=== PATIENT | female | born 1990 | race Caucasian/White ===

== ENCOUNTER 2023-04-12 06:13 | Inpatient (IN) | payer BC ==
[2023-04-12] MEDS ORDERED: METHYLERGONOVINE 0.2 MG/ML 1 ML AMP IM PRN (06:27)
[2023-04-12] MEDS ORDERED: OXYTOCIN 10 UNIT/ML 1 ML VIAL IM PRN (06:27)
[2023-04-12] MEDS ORDERED: miSOPROStoL 200 MCG TAB PO PRN (06:27)
[2023-04-12] MEDS ORDERED: TRANEXAMIC 1,000 MG/100ML-NACL 1,000 MG in EMPTY BAG 1 BAG IV PRN (06:27)
[2023-04-12] MEDS ORDERED: CARBOPROST TROMETHAMINE 250 MCG/ML 1 ML AMP IM PRN (06:27)
[2023-04-12] MEDS ORDERED: TERBUTALINE 1 MG/ML VIAL SQ PRN (06:27)
[2023-04-12] MEDS: OXYTOCIN 30 UNITS/500 ML NS 30 UNIT in SALINE 1 500ML.BAG IV SCH (06:54)
[2023-04-12] MEDS: LACTATED RINGERS 1,000 ML IV SCH (06:54)
[2023-04-12 06:55] LABS: Basophils % (A) 0 %; Eosinophils # (A) 0.1 k/uL (0-0.7); Eosinophils % (A) 2 %; HCT 42.1 % (34.0-46.0); HGB 15.1 gm/dL (11.4-16.0); Lymphocytes % (A) 22 %; MCH 33.3 pg (25.0-35.0); MCHC 35.8 g/dL (31.0-37.0); MCV 93.1 fL (80.0-100.0); Mean Platelet Volume 7.4; Monocytes # (A) 0.4 k/uL (0-1.0); Monocytes % (A) 4 %; Neutrophils # (A) 6.4 k/uL (1.3-7.7); Neutrophils % (A) 70 %; Platelet Count 222 k/uL (150-450); RBC 4.52 m/uL (3.80-5.40); RDW 12.5 % (11.5-15.5); WBC 9.1 k/uL (3.8-10.6)
[2023-04-12 07:23] LABS: Glucose,Whole Blood 79 mg/dL (70-110)
[2023-04-12] MEDS ORDERED: fentaNYL (PF) 50 MCG/ML 5 ML AMP ONE (09:18)
[2023-04-12] MEDS ORDERED: ROPIVACAINE 5 MG/ML 30 ML VIAL ONE (09:18)
[2023-04-12] MEDS ORDERED: SODIUM CHLORIDE 0.9% 250 ML BAG ONE (09:18)
[2023-04-12] MEDS ORDERED: ZOLPIDEM 5 MG TAB PO PRN (12:30)
[2023-04-12] MEDS ORDERED: BENZOCAINE/MENTHOL SPRAY 1 GM/SPRAY AEROSOL TOPICAL PRN (12:30)
[2023-04-12] MEDS ORDERED: diphenhydrAMINE 50 MG CAP PO PRN (12:30)
[2023-04-12] MEDS ORDERED: LANOLIN CREAM 5 GM TUBE TOPICAL PRN (12:30)
[2023-04-12] MEDS ORDERED: SIMETHICONE 80 MG CHEWABLE PO PRN (12:30)
[2023-04-12] MEDS ORDERED: diphenhydrAMINE 50 MG/ML 1 ML VIAL IVP PRN ×2 (12:30)
[2023-04-12] MEDS ORDERED: HYDROCORTISONE 2.5% RECTAL CREAM 30 GM TUBE RECTAL PRN (12:30)
[2023-04-12] MEDS ORDERED: diphenhydrAMINE 25 MG CAP PO PRN (12:30)
[2023-04-12] MEDS ORDERED: OXYTOCIN 30 UNITS/500 ML NS 30 UNIT in SALINE 1 500ML.BAG IV SCH (12:30)
--- NOTE | 2023-04-12 13:22 | P.PROBDLV ---
Vaginal Delivery Note - . Vaginal Delivery Note: This is a 32-year-old 1 para 0 at 39-1/7 weeks that presented to labor and delivery for induction of labor secondary to gestational diabetes, diet controlled. Patient was admitted and Pitocin induction of labor was begun. Patient underwent amniotomy and clear fluid was obtained. Patient quickly became uncomfortable and did request epidural placement. Epidural was placed without difficulty by the anesthesia department. Patient made good progress toward complete and began pushing. With excellent maternal effort patient had a normal spontaneous vaginal delivery of a viable female , loose nuchal cord delivered through compound right hand. After 2-minute delay the umbilical cord was doubly clamped and cut. Spontaneous cry was noted at . The send was delivered spontaneously intact with a three-vessel cord being noted. On inspection the patient's vaginal vault a second-degree midline laceration was appreciated this was instilled with lidocaine and repaired with 3-0 Rapide in the usual fashion. A small periurethral laceration was noted to be bleeding therefore 4-0 chromic in a [id number] suture was used to obtain hemostasis. Uterus was noted to be firm and below the umbilicus. The bladder was drained for approximately 200 cc of clear yellow urine after delivery of the placenta. All counts were noted be correct x 2. And and tolerated delivery well and resting comfortably.
[2023-04-12] MEDS: LIDOCAINE 0.5% (PF) 5 MG/ML (50 ML SDV) SQ PRN (13:28)
[2023-04-12] MEDS: IBUPROFEN 600 MG TAB PO SCH (17:22)
[2023-04-12] MEDS: SENNOSIDES-DOCUSATE SODIUM 1 EACH TAB PO SCH (20:18)
[2023-04-13] MEDS: ACETAMINOPHEN TAB 325 MG TAB PO PRN (05:24)
[2023-04-13] MEDS: LEVOTHYROXINE 125 MCG TAB PO SCH (05:24)
[2023-04-13 06:29] LABS: Basophils % (A) 0 %; Eosinophils # (A) 0.1 k/uL (0-0.7); Eosinophils % (A) 1 %; HGB 12.4 gm/dL (11.4-16.0); Lymphocytes # (A) 2.3 k/uL (1.0-4.8); Lymphocytes % (A) 20 %; MCH 33.2 pg (25.0-35.0); MCHC 35.4 g/dL (31.0-37.0); MCV 93.6 fL (80.0-100.0); Mean Platelet Volume 8.6; Monocytes # (A) 0.5 k/uL (0-1.0); Monocytes % (A) 4 %; Neutrophils # (A) 8.3 k/uL (1.3-7.7); Neutrophils % (A) 74 %; Platelet Count 190 k/uL (150-450); RBC 3.74 m/uL (3.80-5.40); RDW 12.6 % (11.5-15.5); WBC 11.3 k/uL (3.8-10.6)
--- NOTE | 2023-04-13 09:04 | P.DS ---
Providers Date of admission: 04/12/23 06:13 Expected date of discharge: 04/13/23 Attending physician: Mariposa Joshi Primary care physician: Mike Boykin - Discharge Diagnosis(es) (1) Term Current Visit: Yes Status: Acute (2) GDM, class A1 Current Visit: Yes Status: Acute (3) Status post vaginal delivery Current Visit: Yes Status: Acute (4) Obstetrical laceration, second degree Current Visit: Yes Status: Acute Hospital Course: 32-year-old G1 now P1 that presented to labor and delivery at 39-1/7 weeks for induction of labor secondary to gestational diabetes, diet-controlled. Patient had been receiving routine care which was essentially uncomplicated despite the diagnosis of gestational diabetes. Blood sugars been well-con trolled throughout the . Patient was admitted and Pitocin duction of labor was begun. Patient underwent amniotomy clear fluid was obtained. Patient quickly became uncomfortable and did request epidural placement. Patient progressed to complete began pushing had a normal spontaneous vaginal delivery of a viable female infant with a loose nuchal cord and compound right hand. Patient did sustain a second-degree vaginal laceration which was repaired in the usual fashion with 3-0 Rapide. Patient's course has been uneventful. This day #1 she is ambulating and voiding without difficulty. She is tolerating a regular diet without nausea or vomiting. States her pain is well-controlled. She is breast-feeding with some difficulty and will see prior to discharge. Viable female infant delivered at 1205, weight of 6 pounds 6 ounces, Apgars of 9 and 10 at 1 and 5 minutes respectively. Patient Condition at Discharge: Good Plan - Discharge Summary New Discharge Prescriptions: No Action Aspirin 81 mg PO DAILY Vit No.179/Iron/Folic [ Tablet] 1 tab PO DAILY metFORMIN HCL [Glucophage] 500 mg PO BID Levothyroxine Sodium [Synthroid] 125 mcg PO DAILY Discharge Medication List Aspirin 81 mg PO DAILY 04/12/23 [History] Levothyroxine Sodium [Synthroid] 125 mcg PO DAILY 04/12/23 [History] Vit No.179/Iron/Folic [ Tablet] 1 tab PO DAILY 04/12/23 [History] metFORMIN HCL [Glucophage] 500 mg PO BID 04/12/23 [History] Follow up Appointment(s)/Referral(s): Mariposa Joshi DO [Doctor of Osteopathic Medicine] - 6 Weeks Patient Instructions/Handouts: Vaginal Delivery (GEN), Vaginal Delivery (DC) Discharge Disposition: HOME SELF-CARE
[2023-04-13] MEDS: PRENATAL VIT-IRON-FOLIC ACID 1 EACH TABLET PO SCH (10:09)
[2023-04-14 02:11] VITALS: RESP 16
[2023-04-14 07:34] VITALS: BP 130/91; PULSE 81; TEMP 97.6
--- NOTE | 2023-04-14 11:48 | P.HPOB ---
History of Present Illness H&P Date: 04/12/23 Chief Complaint: IUP @ 39 1/7 weeks, GDM A1 32 yo at 39 1/7 weeks that presents to the hospital for induction of labor secondary to gestational diabetes diet-controlled. Patient's blood sugars have been well-controlled throughout the . Patient notes good movement and occasional contraction but denies vaginal bleeding or loss of fluid. On blood work this patient is a blood type of O+. Past Medical History Past Medical History: Asthma Additional Past Medical History / Comment(s): PCOS History of Any Multi-Drug Resistant Organisms: None Reported Past Surgical History: No Surgical Hx Reported Past Anesthesia/Blood Transfusion Reactions: No Reported Reaction Past Psychological History: No Psychological Hx Reported Smoking Status: Never smoker Past Drug Use History: None Reported Medications and Allergies Home Medications Medication Instructions Recorded Confirmed Type Aspirin 81 mg PO DAILY 04/12/23 04/12/23 History Levothyroxine Sodium [Synthroid] 125 mcg PO DAILY 04/12/23 04/12/23 History Vit No.179/Iron/Folic 1 tab PO DAILY 04/12/23 04/12/23 History [ Tablet] metFORMIN HCL [Glucophage] 500 mg PO BID 04/12/23 04/12/23 History Allergies Allergy/AdvReac Type Severity Reaction Status Date / Time Penicillins Allergy Rash/Hives Verified 03/31/23 12:37 acetaminophen [From [facility]] AdvReac Nausea Verified 04/12/23 06:27 hydrocodone [From [facility]] AdvReac Nausea Verified 04/12/23 06:27 oxycodone AdvReac Nausea Verified 04/12/23 06:27 Exam Osteopathic Statement: *. No significant issues noted on an osteopathic structural exam other than those noted in the History and Physical/Consult. Vital Signs Temp Pulse Resp BP 04/12/23 06:25 97.5 F L 90 16 134/88 Intake and Output 04/11/23 04/12/23 04/12/23 22:59 06:59 14:59 Other: Weight 81.647 kg Results Result Diagrams: 04/12/23 06:41
--- NOTE | 2023-04-14 11:48 | P.PNOBGVD ---
Subjective - Subjective Principal diagnosis: day #2, normal spontaneous vaginal delivery Interval history: Patient is doing well . She is ambulating and voiding without difficulty. She is tolerating a regular diet without nausea or vomiting. States her pain is well-controlled. She denies concerns. She is working on breast-feeding with some difficulty and using nipple shield. Patient reports: Reports appetite normal, Reports voiding normally, Reports pain well controlled, Reports ambulating normally : doing well Objective - Latest Vital Signs Latest vital signs: Vital Signs Temp Pulse Resp BP Pulse Ox 04/14/23 07:27 97.6 F 81 16 130/91 96 04/14/23 00:15 98.0 F 89 16 111/79 95 04/13/23 15:10 97.9 F 97 18 123/85 95 - Exam Extremities: Present: normal, edema Abdomen: Present: normal appearance Uterus: Present: normal, firm Assessment and Plan (1) Term Current Visit: Yes Status: Acute Code(s): Z34.90 - ENCNTR FOR SUPRVSN OF NORMAL , UNSP, UNSP TRIMESTER SNOMED Code(s): 97068558 (2) GDM, class A1 Current Visit: Yes Status: Acute Code(s): O24.410 - GESTATIONAL DIABETES MELLITUS IN , DIET CONTROLLED SNOMED Code(s): 66999108 (3) Status post vaginal delivery Current Visit: Yes Status: Acute Code(s): XJL9368 - SNOMED Code(s): 282440978 (4) Obstetrical laceration, second degree Current Visit: Yes Status: Acute Code(s): O70.1 - SECOND DEGREE PERINEAL LACERATION DURING DELIVERY SNOMED Code(s): 2363519 Plan: Patient is doing well . Will plan discharge home later this afternoon. Patient is encouraged to discuss nursing concerns with . Will plan discharge with routine follow-up at 6 weeks.
== END 2023-04-14 14:45 | disposition home or self-care (01) | DRG 807 ==
LOC: 4FBP 06:13 → MERGE 04-18 12:29
PROVIDERS: ADMIT Obstetrics & Gynecology Obstetrics; ATTEND Obstetrics & Gynecology Obstetrics
PROC: 3E033VJ Introduction of Other Hormone into Peripheral Vein, Percutaneous Approach (ICD-10-PCS; principal; 2023-04-12)
PROC: 0UQMXZZ Repair Vulva, External Approach (ICD-10-PCS; principal; 2023-04-12)
PROC: 10907ZC Drainage of Amniotic Fluid, Therapeutic from Products of Conception, Via Natural or Artificial Opening (ICD-10-PCS; principal; 2023-04-12)
PROC: 0KQM0ZZ Repair Perineum Muscle, Open Approach (ICD-10-PCS; principal; 2023-04-12)
PROC: 10E0XZZ Delivery of Products of Conception, External Approach (ICD-10-PCS; principal; 2023-04-12)
DX: O24.420 Gestational diabetes mellitus in childbirth, diet controlled (principal); O99.52 Diseases of the respiratory system complicating childbirth; J45.909 Unspecified asthma, uncomplicated; O99.284 Endocrine, nutritional and metabolic diseases complicating childbirth; O32.6XX0 Maternal care for compound presentation, not applicable or unspecified; O69.81X0 Labor and delivery complicated by cord around neck, without compression, not applicable or unspecified; O71.82 Other specified trauma to perineum and vulva; O70.1 Second degree perineal laceration during delivery; E28.2 Polycystic ovarian syndrome; Z88.0 Allergy status to penicillin; Z88.6 Allergy status to analgesic agent; Z88.5 Allergy status to narcotic agent; Z79.890 Hormone replacement therapy; Z79.84 Long term (current) use of oral hypoglycemic drugs; Z79.82 Long term (current) use of aspirin; Z3A.39 39 weeks gestation of pregnancy; Z37.0 Single live birth
CPT/HCPCS: 85025; 86850; 86900; 86901; 88307